=== PATIENT | male | born 1965 | race Caucasian/White ===

== ENCOUNTER 2020-07-22 14:42 | Emergency (ER) | payer OTHER ==
[~2020-07-22 14:42] MED LIST: AMIODARONE HCL200 MG PO; AMLODIPINE BESYL5 MG PO; ASPIRIN EC81 MG PO; ATORVASTATIN CA20 MG PO; BRILINTA 90 MG90 MG PO; CLEOCIN HCL300 MG PO; CLOPIDOGREL75 MG PO; COZAAR100 MG PO; ELIQUIS5 MG PO; HYDROCHLOROTHIA25 MG PO; HYDROXYZINE HCL10 MG PO; IBUPROFEN600 MG PO; LOPRESSOR 50 MG50 MG PO; NEURONTIN300 MG PO; NICOTINE PATCH1 EAC2 TD; ZESTRIL5 MG PO
[2020-07-22 15:47] LABS: HEMOGLOBIN 17.5 gm/dl (14.0-17.5); RED BLOOD COUNT 6.15 M/UL (4.20-5.50); WHITE BLOOD COUNT 8.7 K/UL (4.5-11.0)
[2020-07-22 16:23] LABS: BUN/CREATININE RATIO 13 (0-10)
[2020-07-22] MEDS ORDERED: METOPROLOL TAR100 MG PO (17:16)
== END 2020-07-22 16:40 | disposition home or self-care (01) ==
LOC: ER1 14:42
PROVIDERS: Family Medicine
DX: I48.91 Unspecified atrial fibrillation (principal); I25.10 Atherosclerotic heart disease of native coronary artery without angina pectoris; Z86.711 Personal history of pulmonary embolism; I42.9 Cardiomyopathy, unspecified; J44.9 Chronic obstructive pulmonary disease, unspecified; K21.9 Gastro-esophageal reflux disease without esophagitis; Z79.01 Long term (current) use of anticoagulants; Z79.899 Other long term (current) drug therapy; Z88.0 Allergy status to penicillin
CPT/HCPCS: 71045; 80053; 82550; 82553; 83874; 83880; 84439; 84443; 84484; 85025; 85610; 93005; 96374; 99285